=== PATIENT | male | born 1945 | race Caucasian/White ===

== ENCOUNTER → 2017-12-10 | Day surgery (SDC) | payer MEDICARE, BC ==
[~2017-12-10] MED LIST: Lactated Ringers 1,000 ML IV SCH; Propofol 200 MG/20 ML SDV IV ONE
[2017-12-10 09:22] VITALS: BP 116/70
--- NOTE | 2017-12-10 09:22 | OR ---
DATE OF OPERATION: 12/10/2017 PREOPERATIVE DIAGNOSIS: ABNORMAL UPPER GASTROINTESTINAL. POSTOPERATIVE DIAGNOSIS: ABNORMAL UPPER GASTROINTESTINAL. SURGEON: Tomas Arcos MD PROCEDURE: EGD WITH POLYP REMOVAL X3, JOHNNY. ANESTHESIA: MICRO COMPUTER SPECIALIST. COMPLICATIONS: None. SPECIMEN: 1. Fundic polyps x3. 2. JOHNNY test. FINDINGS: 1. Full-length EGD. 2. Fundic polyposis. 3. Small hiatal hernia with GERD. No esophagitis or Newton's. RECOMMENDATIONS: Medical followup with Dr. Ledesma. INDICATIONS: Patient had an upper GI recently which apparently showed diffuse stomach ulcers and Dr. Ledesma wanted him evaluated with the scope. DESCRIPTION OF PROCEDURE: The patient was prepped and draped and placed in the left lateral decubitus position. A lubricated Olympus gastroscope was inserted inserted and easily intubated in the esophagus. Esophageal lining was benign in its entire course. The Z-line was clean around 38 cm. There was a small hernia present with some spontaneous reflux, but no distal esophagitis, stricturing, ulceration, or Newton's changes. The scope was advanced into the stomach through the pylorus into the second portion of the duodenum. The duodenal bulb appeared benign. The scope was brought back into the stomach and retroflexed. Very difficult to insufflate him enough to get a good look at the upper cardia of the stomach on retroflexion, but upon direct exam of the entire gastric lining the patient has adenomatous polyps throughout most of the fundus and into the proximal antrum, very classic in appearance. We removed 3 of these without any complication with forceps in their entirety. No worrisome lesions or peptic ulcer disease or sign of ulcers were seen. A JOHNNY test was obtained. Air was then suctioned, scope removed without complication. TRAV/CARLITA /[id number]
== END ==
LOC: CC.SDS 07:59
PROVIDERS: ATTEND Family Medicine
DX: K31.7 Polyp of stomach and duodenum (principal); K29.50 Unspecified chronic gastritis without bleeding; K44.9 Diaphragmatic hernia without obstruction or gangrene; K21.9 Gastro-esophageal reflux disease without esophagitis; I25.10 Atherosclerotic heart disease of native coronary artery without angina pectoris; E78.5 Hyperlipidemia, unspecified; I10 Essential (primary) hypertension; E03.9 Hypothyroidism, unspecified; N40.0 Benign prostatic hyperplasia without lower urinary tract symptoms; E55.9 Vitamin D deficiency, unspecified; Z79.899 Other long term (current) drug therapy; Z79.01 Long term (current) use of anticoagulants; Z87.891 Personal history of nicotine dependence; Z95.2 Presence of prosthetic heart valve
CPT/HCPCS: 00731; 36415; 43239; 85610; 87081; 88305; 88342; J2704; J7120

== ENCOUNTER 2023-02-22 15:15 | Emergency (ER) | payer MEDICARE, BC ==
[2023-02-22 15:27] VITALS: BP 151/84; PULSE 60
== END 2023-02-22 16:07 | disposition home or self-care (01) ==
LOC: CC.ED 15:15
DX: S43.402A Unspecified sprain of left shoulder joint, initial encounter (principal); E78.00 Pure hypercholesterolemia, unspecified; I10 Essential (primary) hypertension; E03.9 Hypothyroidism, unspecified; Z79.01 Long term (current) use of anticoagulants; Z79.82 Long term (current) use of aspirin; Z95.2 Presence of prosthetic heart valve; Z79.899 Other long term (current) drug therapy; Z87.891 Personal history of nicotine dependence; W14.XXXA Fall from tree, initial encounter
CPT/HCPCS: 73030-LT; 99283